=== PATIENT | female | born 1995 | race Caucasian/White ===

== ENCOUNTER 2022-07-10 02:02 | Emergency (ER) | payer OTHER, MEDICAID ==
[~2022-07-10] VITALS: Ht 162.6 cm; Wt 80.0 kg
[2022-07-10] MEDS ORDERED: LORAZEPAM 2MG/ML CPJ IV ONE (03:15)
[2022-07-10] MEDS ORDERED: SODIUM CHLORIDE 0.9% 1,000 ML IV ONE (03:15)
[2022-07-10 03:38] LABS: BASOPHILS % 0.7 % (0.0-2.0); HEMATOCRIT. 38.3 % (36.0-48.0); HEMOGLOBIN. 13.1 g/dL (12.0-16.0); LYMPHOCYTES % 27.4 % (20.0-50.0); MEAN CORPUSCULAR HEMOGLOBIN 29.9 pg (28.0-32.0); MEAN CORPUSCULAR VOLUME 87.5 fL (81.0-99.0); MEAN PLATELET VOLUME 8.2 fl (7.4-10.4); MONOCYTES % 7.3 % (2.0-8.0); NEUTROPHILS % 62.6 % (40.0-76.0); PLATELET 459 x1000/uL (130-400); RED BLOOD CELL COUNT 4.38 mill/uL (4.2-5.4); RED CELL DISTRIBUTION WIDTH 13.2 % (11.6-14.6)
[2022-07-10 03:45] LABS: CHLORIDE 105 mEq/L (98-107)
[2022-07-10 03:52] LABS: HCG SCREEN NEGATIVE
[2022-07-10 04:37] LABS: *BARBITURATES SCREEN URINE NEGATIVE (NEGATIVE); *BENZODIAZEPINES SCREEN URINE NEGATIVE (NEGATIVE); *COCAINE SCREEN URINE NEGATIVE (NEGATIVE); CANNABINOID URINE SCREEN NEGATIVE (NEGATIVE); METHADONE URINE SCREEN NEGATIVE (NEGATIVE); OPIATES URINE SCREEN NEGATIVE (NEGATIVE); PHENCYCLIDINE URINE SCREEN NEGATIVE (NEGATIVE)
[2022-07-10 04:38] LABS: *AMPHETAMINES SCREEN URINE PRESUMTIVE POSITIVE (NEGATIVE)
[2022-07-10 05:54] VITALS: BP 110/95
== END 2022-07-10 06:00 | disposition home or self-care (01) ==
LOC: ER 02:02
DX: R07.89 Other chest pain (principal); R00.0 Tachycardia, unspecified; F15.10 Other stimulant abuse, uncomplicated; J45.909 Unspecified asthma, uncomplicated
CPT/HCPCS: 36415; 71045; 80053; 80305; 84484; 84703; 85025; 96361; 96374; 99284; J2060; J7030

== ENCOUNTER 2023-01-15 09:52 | Emergency (ER) | payer MEDICAID, OTHER ==
[~2023-01-15] VITALS: Ht 162.6 cm; Wt 73.0 kg
[2023-01-15 12:35] LABS: BASOPHILS % 0.5 % (0.0-2.0); EOSINOPHILS % 0.1 % (0.0-5.0); HEMATOCRIT. 36.6 % (36.0-48.0); HEMOGLOBIN. 12.5 g/dL (12.0-16.0); LYMPHOCYTES % 15.2 % (20.0-50.0); MEAN CORPUSCULAR HEMOGLOBIN 29.9 pg (28.0-32.0); MEAN CORPUSCULAR VOLUME 87.5 fL (81.0-99.0); MEAN PLATELET VOLUME 7.8 fl (7.4-10.4); MONOCYTES % 5.7 % (2.0-8.0); NEUTROPHILS % 78.5 % (40.0-76.0); PLATELET 417 x1000/uL (130-400); RED BLOOD CELL COUNT 4.18 mill/uL (4.2-5.4); RED CELL DISTRIBUTION WIDTH 13.6 % (11.6-14.6)
[2023-01-15 12:53] LABS: CHLORIDE 108 mEq/L (98-107); ETHANOL BLOOD < 10 mg/dL (-10)
[2023-01-15 13:40] LABS: CLARITY URINE CLEAR (CLEAR); COLOR URINE YELLOW (YELLOW); KETONES URINE TRACE (NEGATIVE); LEUKOCYTE ESTERASE URINE NEGATIVE (NEGATIVE); NITRITE URINE NEGATIVE (NEGATIVE); OCCULT BLOOD URINE 1+ (NEGATIVE); PH URINE 6.5 (4.5-8.0); PROTEIN URINE NEGATIVE (NEGATIVE); SPECIFIC GRAVITY URINE 1.002 (1.005-1.030); UROBILINOGEN URINE 0.2 E.U./dL (0.2-1.0)
[2023-01-15 13:48] LABS: HCG SCREEN NEGATIVE
[2023-01-15 13:59] LABS: *AMPHETAMINES SCREEN URINE NEGATIVE (NEGATIVE); *BARBITURATES SCREEN URINE NEGATIVE (NEGATIVE); *BENZODIAZEPINES SCREEN URINE NEGATIVE (NEGATIVE); *COCAINE SCREEN URINE NEGATIVE (NEGATIVE); CANNABINOID URINE SCREEN NEGATIVE (NEGATIVE); METHADONE URINE SCREEN NEGATIVE (NEGATIVE); OPIATES URINE SCREEN NEGATIVE (NEGATIVE); PHENCYCLIDINE URINE SCREEN NEGATIVE (NEGATIVE)
[2023-01-15] MEDS ORDERED: LORAZEPAM 2MG/ML CPJ IM ONE (16:15)
[2023-01-15] MEDS ORDERED: HALOPERIDOL LACTATE 5MG/ML VIAL IM ONE (16:15)
[2023-01-15 16:55] VITALS: O2SAT 99
[2023-01-16] MEDS: RISPERIDONE 0.5MG TABLET PO SCH ×2 (10:00→17:00)
[2023-01-16 20:03] VITALS: BP 132/78; PULSE 100; RESP 16; TEMP 98.5
== END 2023-01-16 20:28 | disposition short-term general hospital (02) ==
LOC: ER 10:15
DX: F29 Unspecified psychosis not due to a substance or known physiological condition (principal); J45.909 Unspecified asthma, uncomplicated; Z20.822 Contact with and (suspected) exposure to COVID-19; Z86.59 Personal history of other mental and behavioral disorders
CPT/HCPCS: 80053; 80305; 81003; 80307; 80329; 80320; 84703; 85025; 36415; 96372; 99291; 87426; J1630; J2060; C9803; Z7610 ×2; G0480

== ENCOUNTER 2023-01-31 13:35 | Emergency (ER) | payer MEDICAID ==
[~2023-01-31] VITALS: Ht 165.1 cm; Wt 77.0 kg
[2023-01-31 13:38] VITALS: BP 124/82; PULSE 122; RESP 14; TEMP 98.5; O2SAT 95
== END 2023-01-31 17:13 | disposition left against medical advice (07) ==
LOC: ER 14:53
DX: Z00.8 Encounter for other general examination (principal); Z53.21 Procedure and treatment not carried out due to patient leaving prior to being seen by health care provider
CPT/HCPCS: 99281

== ENCOUNTER 2023-02-02 18:04 | Emergency (ER) | payer MEDICAID ==
[~2023-02-02] VITALS: Ht 162.6 cm; Wt 90.0 kg
[2023-02-02 18:08] VITALS: O2SAT 100
[2023-02-02 20:26] LABS: CLARITY URINE CLEAR (CLEAR); COLOR URINE YELLOW (YELLOW); GLUCOSE URINE NEGATIVE (NEGATIVE); KETONES URINE NEGATIVE (NEGATIVE); LEUKOCYTE ESTERASE URINE NEGATIVE (NEGATIVE); NITRITE URINE NEGATIVE (NEGATIVE); OCCULT BLOOD URINE NEGATIVE (NEGATIVE); PH URINE 6.5 (4.5-8.0); PROTEIN URINE TRACE (NEGATIVE); SPECIFIC GRAVITY URINE 1.031 (1.005-1.030)
[2023-02-02 20:27] LABS: BASOPHILS % 0.5 % (0.0-2.0); EOSINOPHILS % 1.2 % (0.0-5.0); HEMATOCRIT. 36.4 % (36.0-48.0); HEMOGLOBIN. 11.6 g/dL (12.0-16.0); MEAN CORPUSCULAR HGB CONC 31.8 g/dL (31.0-37.0); MEAN CORPUSCULAR VOLUME 91.2 fL (81.0-99.0); MEAN PLATELET VOLUME 7.9 fl (7.4-10.4); MONOCYTES % 7.5 % (2.0-8.0); NEUTROPHILS % 67.8 % (40.0-76.0); PLATELET 435 x1000/uL (130-400); RED BLOOD CELL COUNT 3.99 mill/uL (4.2-5.4); RED CELL DISTRIBUTION WIDTH 13.9 % (11.6-14.6); WHITE BLOOD COUNT 14.8 x1000/uL (4.5-11.0)
[2023-02-02 20:35] LABS: CHLORIDE 108 mEq/L (98-107); INDEX HEMOLYSI 1 (1-3); INDEX ICTERIC 1 (1-4); INDEX LIPEMIC 1 (1-3); POTASSIUM 3.9 mEq/L (3.5-5.1); SODIUM 136 mEq/L (136-145)
[2023-02-02 20:46] LABS: *AMPHETAMINES SCREEN URINE NEGATIVE (NEGATIVE); *BARBITURATES SCREEN URINE NEGATIVE (NEGATIVE); *COCAINE SCREEN URINE NEGATIVE (NEGATIVE); ACETAMINOPHEN <2 ug/mL ug/mL (10-30); ALANINE AMINOTRANSFERASE 27 IU/L (13-61); ALBUMIN 3.6 g/dL (3.4-5.0); ASPARTATE AMINOTRANSFERASE 25 IU/L (15-37); BILIRUBIN TOTAL 0.4 mg/dL (0.1-1.0); CALCIUM 8.6 mg/dL (8.5-10.1); CANNABINOID URINE SCREEN NEGATIVE (NEGATIVE); CARBON DIOXIDE 26 mEq/L (21-32); CREATININE 0.8 mg/dL (0.6-1.3); ECSTASY MDMA SCREEN URINE NEGATIVE (NEGATIVE); ETHANOL BLOOD < 10 mg/dL (-10); GLUCOSE 101 mg/dL (70-105); METHADONE URINE SCREEN NEGATIVE (NEGATIVE); OPIATES URINE SCREEN NEGATIVE (NEGATIVE); PHENCYCLIDINE URINE SCREEN NEGATIVE (NEGATIVE); PROTEIN TOTAL 7.6 g/dL (6.0-8.3); UREA NITROGEN BLOOD 10 mg/dL (7-21)
[2023-02-02 20:53] LABS: *BENZODIAZEPINES SCREEN URINE PRESUMTIVE POSITIVE (NEGATIVE)
[2023-02-02 20:54] LABS: HCG SCREEN NEGATIVE
[2023-02-02 21:47] LABS: BACTERIA URINE TRACE; RBC URINE NONE SEEN /hpf (0-2); SQUAMOUS EPITHELIAL CELL URINE FEW /lpf (RARE/1+); WBC URINE NONE SEEN /hpf (0-2)
[2023-02-03] MEDS ORDERED: LORAZEPAM 2MG/ML CPJ IM PRN (01:45)
[2023-02-03] MEDS: RISPERIDONE 1MG TABLET PO SCH ×2 (11:15→21:00)
[2023-02-04] MEDS: RISPERIDONE 1MG TABLET PO SCH (09:00)
[2023-02-05] MEDS: RISPERIDONE 1MG TABLET PO SCH ×2 (09:00→21:23)
[2023-02-06 13:18] VITALS: BP 117/63; PULSE 104; RESP 18; TEMP 97.1
[2023-02-06] MEDS ORDERED: RISPERIDONE 1MG TABLET PO SCH (21:00)
== END 2023-02-06 14:37 | disposition short-term general hospital (02) ==
LOC: ER 18:10
DX: R45.6 Violent behavior (principal); F12.10 Cannabis abuse, uncomplicated; J45.909 Unspecified asthma, uncomplicated; Z20.822 Contact with and (suspected) exposure to COVID-19; Z86.59 Personal history of other mental and behavioral disorders
CPT/HCPCS: 80053; 80305; 81003; 80307; 80329; 80320; 84703; 85025; 36415; 99285; 87426; 96372; C9803; J2060; G0480